=== PATIENT | female | born 1935 | race Caucasian/White ===

== ENCOUNTER 2016-12-16 10:02 | Emergency (ER) | payer MEDICARE ==
[~2016-12-16 10:02] MED LIST: ACCUNEB INH; ACET500CAP PO; ADVAIR INH; ADVAIR100 INH; ADVAIR250 INH; APRES25 PO; ASAB PO; BACTROINT TOP; GLUCOSE TABLETS PO; HALF81 PO; HIPREX1 GM PO; K250 PO; LIDODERM T; LIDODERM TOP; MACROBID PO; MAX25 PO; MCZ25 PO; MONODOX50 MG PO; OS500+D PO; P5 PO; PLAQ200B PO; PRAVACHOL40 MG PO; PREDNISONE2.5 MG PO; PRILO PO; PRILOSEC40 MG PO; PROAIR HFA INH; RECLAST IV; SKELAXIN8 PO; SMZ-TMP PO; SUCR PO; TOPXL50 PO; ULTRAM50 PO; XALAT OPH; ZYRTEC ALLGY10 MG PO
[2016-12-16 10:58] LABS: BASOPHILS 0.4 %; BASOPHILS ABSOLUTE 0.02 10/3/uL (0.0-0.16); EOSINOPHILS 1.6 %; EOSINOPHILS ABSOLUTE 0.09 10/3/uL (0.0-0.53); HEMOGLOBIN 12.9 g/dL (12.0-16.0); IMMATURE GRANULOCYTES 0.2 %; IMMATURE GRANULOCYTES ABSOLUTE 0.01 10/3/uL (0.0-0.11); LYMPHOCYTES 23.9 %; LYMPHOCYTES ABSOLUTE 1.36 10/3/uL (0.67-4.30); MEAN CORPUS HGB CONC 32.7 g/dL (32.0-36.0); MEAN CORPUSCULAR HEMOGLOB 29.7 pg (26.0-34.0); MEAN CORPUSCULAR VOLUME 90.6 fL (80-100); MEAN PLATELET VOLUME 10.5 fL (9.2-13.0); MONOCYTES 13.2 %; MONOCYTES ABSOLUTE 0.75 10/3/uL (0.21-1.20); NEUTROPHILS 60.7 %; NEUTROPHILS ABSOLUTE 3.45 10/3/uL (2.02-8.40); PLATELET COUNT 154 10/3/uL (150-400); RBC DISTRIBUTION WIDTH 14.6 % (12.0-16.0); RED CELL COUNT 4.35 10/6/uL (4.0-5.6); WHITE BLOOD CELLS 5.7 10/3/uL (4.5-10.5)
[2016-12-16 10:59] LABS: HEMATOCRIT 39.4 % (36.0-48.0); MANUAL DIFF NO %
[2016-12-16 11:04] LABS: PARTIAL THROMBO TIME 32.3 SEC (22.5-37.2); PROTIME (NOT ORD) 13.4 SEC (12.0-14.5)
[2016-12-16 11:15] LABS: A/G RATIO 0.9 (0.7-1.9); ALBUMIN 3.3 G/DL (3.5-5.0); ALKALINE PHOSPHATASE 49 U/L (45-117); CALCIUM, SERUM 8.9 MG/DL (8.5-10.4); CHLORIDE, SERUM 107 MMOL/L (96-112); CO2 (CARBON DIOXIDE) 26 MMOL/L (24-34); CREATININE 0.93 MG/DL (0.55-1.02); GFR AFRICAN AMERICAN 66 ML/MIN (>=60); GFR NON AFRICAN AMERICAN 57 ML/MIN (>=60); GLUCOSE, SERUM 90 MG/DL (60-99); POTASSIUM, SERUM 3.6 MMOL/L (3.5-5.3); SGOT(AST) 15 U/L (5-40); SGPT(ALT) 16 U/L (5-65); SODIUM, SERUM 142 MMOL/L (135-148); TOTAL BILIRUBIN 0.4 MG/DL (0-1.2); TOTAL PROTEIN 6.8 G/DL (6.0-8.5); TROPONIN I 0.04 NG/ML (<0.05)
[2016-12-16 11:17] LABS: BUN (BLOOD UREA NITROGEN) 13 MG/DL (6-23); GLOBULIN 3.5 G/DL (2.5-4.1)
[2016-12-16] MEDS ORDERED: OS500+D PO (13:58)
[2016-12-16] MEDS ORDERED: CIP2 PO (14:00)
[2017-01-17] MEDS ORDERED: PROLIA60 MG/1 ML SC (12:27)
[2017-01-17] MEDS ORDERED: ALIGN4 MG PO (12:30)
[2017-01-17] MEDS ORDERED: ALBUTEROL0.083 % INH (12:31)
[2017-01-17] MEDS ORDERED: PRINZIDE1 TA1 PO (12:35)
[2017-01-17] MEDS ORDERED: PROZ10 PO (12:36)
[2017-01-17] MEDS ORDERED: CIP2 PO (12:37)
[2017-01-17] MEDS ORDERED: ATV.5 PO (12:38)
[2017-05-15] MEDS ORDERED: BACTRIM1 TAB PO (09:47)
[2017-05-15] MEDS ORDERED: ALBUTEROL5 INH (09:50)
[2017-05-15] MEDS ORDERED: ELIQUIS 5 MG TAB5 MG PO (09:51)
[2017-05-15] MEDS ORDERED: C5 PO (09:53)
== END 2016-12-16 14:36 | disposition home or self-care (01) ==
LOC: ER 10:02
PROVIDERS: Emergency Medicine
DX: R07.9 Chest pain, unspecified (principal); R55 Syncope and collapse; R00.2 Palpitations; J44.9 Chronic obstructive pulmonary disease, unspecified; Z86.73 Personal history of transient ischemic attack (TIA), and cerebral infarction without residual deficits; Z79.899 Other long term (current) drug therapy; Z79.52 Long term (current) use of systemic steroids
CPT/HCPCS: 71010; 80053; 83735; 84484; 85025; 85610; 85730; 99285

== ENCOUNTER 2016-12-23 13:55 | Emergency (ER) | payer MEDICARE ==
[~2016-12-23 13:55] MED LIST changes: +CIP2 PO
[2016-12-23 14:06] LABS: BASOPHILS 0.1 %; BASOPHILS ABSOLUTE 0.01 10/3/uL (0.0-0.16); EOSINOPHILS 1.3 %; EOSINOPHILS ABSOLUTE 0.09 10/3/uL (0.0-0.53); HEMATOCRIT 36.7 % (36.0-48.0); HEMOGLOBIN 12.2 g/dL (12.0-16.0); IMMATURE GRANULOCYTES 0.1 %; IMMATURE GRANULOCYTES ABSOLUTE 0.01 10/3/uL (0.0-0.11); LYMPHOCYTES ABSOLUTE 1.37 10/3/uL (0.67-4.30); MEAN CORPUS HGB CONC 33.2 g/dL (32.0-36.0); MEAN CORPUSCULAR HEMOGLOB 29.3 pg (26.0-34.0); MEAN PLATELET VOLUME 9.3 fL (9.2-13.0); MONOCYTES 9.8 %; MONOCYTES ABSOLUTE 0.67 10/3/uL (0.21-1.20); NEUTROPHILS 68.7 %; NEUTROPHILS ABSOLUTE 4.71 10/3/uL (2.02-8.40); PLATELET COUNT 159 10/3/uL (150-400); RBC DISTRIBUTION WIDTH 14.5 % (12.0-16.0); RED CELL COUNT 4.17 10/6/uL (4.0-5.6); WHITE BLOOD CELLS 6.9 10/3/uL (4.5-10.5)
[2016-12-23 14:07] LABS: MANUAL DIFF NO %
[2016-12-23 14:13] LABS: PROTIME (NOT ORD) 13.3 SEC (12.0-14.5)
[2016-12-23 14:25] LABS: A/G RATIO 1.1 (0.7-1.9); ALBUMIN 3.4 G/DL (3.5-5.0); ALKALINE PHOSPHATASE 52 U/L (45-117); BUN (BLOOD UREA NITROGEN) 11 MG/DL (6-23); CALCIUM, SERUM 8.6 MG/DL (8.5-10.4); CHLORIDE, SERUM 104 MMOL/L (96-112); CO2 (CARBON DIOXIDE) 23 MMOL/L (24-34); CREATININE 0.93 MG/DL (0.55-1.02); GFR AFRICAN AMERICAN 66 ML/MIN (>=60); GFR NON AFRICAN AMERICAN 57 ML/MIN (>=60); GLUCOSE, SERUM 86 MG/DL (60-99); SGOT(AST) 22 U/L (5-40); SGPT(ALT) 23 U/L (5-65); SODIUM, SERUM 138 MMOL/L (135-148); TOTAL BILIRUBIN 0.5 MG/DL (0-1.2); TOTAL PROTEIN 6.4 G/DL (6.0-8.5); TROPONIN I <0.02 NG/ML (<0.05)
[2017-01-17] MEDS ORDERED: PROLIA60 MG/1 ML SC (12:27)
[2017-01-17] MEDS ORDERED: ALIGN4 MG PO (12:30)
[2017-01-17] MEDS ORDERED: ALBUTEROL0.083 % INH (12:31)
[2017-01-17] MEDS ORDERED: PRINZIDE1 TA1 PO (12:35)
[2017-01-17] MEDS ORDERED: PROZ10 PO (12:36)
[2017-01-17] MEDS ORDERED: CIP2 PO (12:37)
[2017-01-17] MEDS ORDERED: ATV.5 PO (12:38)
[2017-05-15] MEDS ORDERED: BACTRIM1 TAB PO (09:47)
[2017-05-15] MEDS ORDERED: ALBUTEROL5 INH (09:50)
[2017-05-15] MEDS ORDERED: ELIQUIS 5 MG TAB5 MG PO (09:51)
[2017-05-15] MEDS ORDERED: C5 PO (09:53)
== END 2016-12-23 17:14 | disposition home or self-care (01) ==
LOC: ER 13:55
PROVIDERS: Emergency Medicine
DX: R07.89 Other chest pain (principal); F41.9 Anxiety disorder, unspecified; J44.9 Chronic obstructive pulmonary disease, unspecified; I10 Essential (primary) hypertension; K21.9 Gastro-esophageal reflux disease without esophagitis; Z85.828 Personal history of other malignant neoplasm of skin; Z79.52 Long term (current) use of systemic steroids; Z79.899 Other long term (current) drug therapy
CPT/HCPCS: 71275; 80053; 83880; 84484; 85025; 85610; 93005; 96374; 99285

== ENCOUNTER 2017-01-10 19:16 | Emergency (ER) | payer MEDICARE ==
[2017-01-10 20:20] LABS: BASOPHILS 0.4 %; BASOPHILS ABSOLUTE 0.02 10/3/uL (0.0-0.16); EOSINOPHILS 2.3 %; EOSINOPHILS ABSOLUTE 0.11 10/3/uL (0.0-0.53); ER CBC TAT 0 Hrs 05 Mins; HEMATOCRIT 37.6 % (36.0-48.0); HEMOGLOBIN 12.1 g/dL (12.0-16.0); IMMATURE GRANULOCYTES 0.2 %; IMMATURE GRANULOCYTES ABSOLUTE 0.01 10/3/uL (0.0-0.11); LYMPHOCYTES 24.9 %; LYMPHOCYTES ABSOLUTE 1.17 10/3/uL (0.67-4.30); MEAN CORPUS HGB CONC 32.2 g/dL (32.0-36.0); MEAN CORPUSCULAR HEMOGLOB 28.4 pg (26.0-34.0); MEAN CORPUSCULAR VOLUME 88.3 fL (80-100); MEAN PLATELET VOLUME 10.8 fL (9.2-13.0); MONOCYTES 14.3 %; MONOCYTES ABSOLUTE 0.67 10/3/uL (0.21-1.20); NEUTROPHILS 57.9 %; NEUTROPHILS ABSOLUTE 2.71 10/3/uL (2.02-8.40); PLATELET COUNT 162 10/3/uL (150-400); RED CELL COUNT 4.26 10/6/uL (4.0-5.6); WHITE BLOOD CELLS 4.7 10/3/uL (4.5-10.5)
[2017-01-10 20:21] LABS: MANUAL DIFF NO %
[2017-01-10 20:23] LABS: ASCORBIC ACID (UR NOT ORDER) NEG (NEG); BILIRUBIN, URINE NEGATIVE (NEG); ER URINALYSIS TAT 0 Hrs 13 Mins; KETONE, URINE NEGATIVE (NEG); LEUKOCYTE ESTERASE(NOT OR NEG (NEG); NITRITE (URINE) NEG (NEG); WBC (NOT ORDERED) (RFLEX) 1 (0-5)
[2017-01-10 20:27] LABS: INTERNATIONAL NORMAL RATI 1.1 UNITS (-); PARTIAL THROMBO TIME 37.6 SEC (22.5-37.2); PROTIME (NOT ORD) 13.7 SEC (12.0-14.5)
[2017-01-10 20:50] LABS: BUN (BLOOD UREA NITROGEN) 19 MG/DL (6-23); CALCIUM, SERUM 8.8 MG/DL (8.5-10.4); CHEST PAIN PROFILE TAT 0 Hrs 35 Mins; CHLORIDE, SERUM 104 MMOL/L (96-112); CO2 (CARBON DIOXIDE) 29 MMOL/L (24-34); CREATININE 0.95 MG/DL (0.55-1.02); GFR AFRICAN AMERICAN 65 ML/MIN (>=60); GFR NON AFRICAN AMERICAN 56 ML/MIN (>=60); GLUCOSE, SERUM 86 MG/DL (60-99); SODIUM, SERUM 138 MMOL/L (135-148); TROPONIN I <0.02 NG/ML (<0.05)
[2017-01-17] MEDS ORDERED: PROLIA60 MG/1 ML SC (12:27)
[2017-01-17] MEDS ORDERED: ALIGN4 MG PO (12:30)
[2017-01-17] MEDS ORDERED: ALBUTEROL0.083 % INH (12:31)
[2017-01-17] MEDS ORDERED: PRINZIDE1 TA1 PO (12:35)
[2017-01-17] MEDS ORDERED: PROZ10 PO (12:36)
[2017-01-17] MEDS ORDERED: CIP2 PO (12:37)
[2017-01-17] MEDS ORDERED: ATV.5 PO (12:38)
[2017-05-15] MEDS ORDERED: BACTRIM1 TAB PO (09:47)
[2017-05-15] MEDS ORDERED: ALBUTEROL5 INH (09:50)
[2017-05-15] MEDS ORDERED: ELIQUIS 5 MG TAB5 MG PO (09:51)
[2017-05-15] MEDS ORDERED: C5 PO (09:53)
== END 2017-01-10 23:05 | disposition home or self-care (01) ==
LOC: ER 19:16
PROVIDERS: Physician Assistant
DX: R51 Headache (principal); J44.9 Chronic obstructive pulmonary disease, unspecified; I10 Essential (primary) hypertension; K21.9 Gastro-esophageal reflux disease without esophagitis; Z85.828 Personal history of other malignant neoplasm of skin; Z95.0 Presence of cardiac pacemaker; Z79.82 Long term (current) use of aspirin; Z79.899 Other long term (current) drug therapy
CPT/HCPCS: 70450; 71010; 80048; 81001; 83735; 84484; 85025; 85610; 85730; 87493; 87493-59; 93005; 96374; 96375; 99285; A9270-GY; J1200; J1885; J2405; J2550

== ENCOUNTER 2017-01-17 12:41 | Inpatient (IN) | payer MEDICARE ==
--- NOTE | ~2017-01-17 | HP ---
History And Physical [place] [address] [facility] [place]. [address] NAME: CITLALI EARL : 33 STATUS : ADM IN [facility]#: [id number] AGE: 81 ADM/REG DATE : 01/17/17 MR#: [id number] REPORT SERV DATE: 01/17/17 DICTATED BY: MABLE WAY DATE: 01/17/17 REPORT STATUS : Draft TRANSCRIBED BY: MODConcha DATE: 01/17/17 DATE OF ADMISSION: 01/17/2017 CHIEF COMPLAINT: Weakness and having diarrhea for 10 days. HISTORY OF PRESENT ILLNESS: This is an 81-year-old female patient, who came to the hospital with generalized weakness and nausea and vomiting and inability to eat and drink for the last 10 days. She had most recently had a pacemaker insertion done about a month ago for the secondary AV block with Dr. Karimi here in the hospital and she was discharged to home and having her regular daily life. However she started having nausea and vomiting, also was found to have a urinary tract infection on 01/13/2017, when she went to see Dr. Duff as a regular checkup. At that time, she already started diarrhea; however, she was also found to have a very dirty looking urine with evidence of infection that she was given the ciprofloxacin. She started to take the medications and then she took only 3 day doses. However she continued to have dysuria and suprapubic tenderness and discomfort. Also her diarrhea continued to getting even worse that she is losing appetite and not able to eat and drink that much. She ended up having emergency visit on Thursday but at that time nothing was found to have her to be admitted to hospital and she went home. However she continued to worse, that is why she revisited the emergency room today. After the emergency room evaluation, she was found to have a sodium 126, chloride 95, with slightly worsening renal function with creatinine 1.1 and BUN 13, and the patient was advised to be admitted to hospital under hospitalist service. Currently she is feeling very sick and weak and she fell at home twice. Does not have any fever. No change in the vision. She complains of a little bit of headache here and there and then she feels nauseated and had vomiting and diarrhea. She denies any dark stool. She said it is very watery and starting from yellow to brown but she said that she never had any dark stool. She never had any history of C. diff colitis as well. She goes to the bathroom about 5 to 6 times a day regardless of the time of the eating and again she was on ciprofloxacin for the last three days without any significant improvement in her urinary tract infection symptoms. Looking back at her records, she had a quinolone resistant E. coli back in December. Denies any chest pain. No seizures. Not short of breath. No cough. There is a slight abdominal pain in the suprapubic area and also kind of diffuse pattern. REVIEW OF SYSTEMS: All systems reviewed and negative as mentioned above. PAST MEDICAL HISTORY: 1. Recent AV dissociation for pacemaker insertion. 2. COPD with remote tobacco abuse. The patient is followed by Dr. Zarco. 3. History of mild aortic calcification. 4. Hyperlipidemia. 5. History of TIA. History And Physical [address] [address] NAME: CITLALI EARL : 33 STATUS : ADM IN [facility]#: [id number] AGE: 81 ADM/REG DATE : 01/17/17 MR#: [id number] REPORT SERV DATE: 01/17/17 DICTATED BY: MABLE WAY DATE: 01/17/17 REPORT STATUS : Draft TRANSCRIBED BY: BEBE DATE: 01/17/17 HOME MEDICATIONS: 1. Albuterol as needed. 2. Advair twice a day. 3. Eliquis 5 mg twice a day. 4. Cipro 250 mg for seven days was given on 01/13/2017. 5. Prozac 10 mg once a day was given on the last visit with Dr. Duff but the patient has not started. 6. Prilosec 40 mg twice a day. 7. Pravastatin 40 mg once at nighttime. 8. Prednisone 2.5 mg once a day as a long-term therapy. 9. Carafate 1 g four times a day. 10.Ultram 50 mg as needed. FAMILY HISTORY: Noncontributory for this patient and their illness. PAST SURGICAL HISTORY: 1. The patient had a cholecystectomy and partial hysterectomy. 2. Elbow surgery. 3. Joint surgery for rheumatoid arthritis. 4. Squamous cell removal. 5. Laparoscopic bowel obstruction surgery in the past. ALLERGIES: PHENERGAN. PHYSICAL EXAMINATION: VITAL SIGNS: Blood pressure 120/58, pulse is 77, her temperature was 98.2, respiratory rate 17, and blood pressure was 120/58. GENERAL: Acutely sick but not in acute cardiovascular distress. HEENT: Pupils are equal, round, and reactive to light. EOMI intact. Conjunctivae not anemic; however, she has very dry oral mucosa. NECK: There is no jugular venous distention. CHEST: Clear to auscultation bilaterally. There is no wheezing or rales. CARDIOVASCULAR: There is no murmur, rub, or gallop. Has a regular rhythm and rate. ABDOMEN: Diffuse pattern of tenderness on the upper area but there is no rebound tenderness and there is a suprapubic tenderness. EXTREMITIES: There is no pitting edema. SKIN: Dry looking. LABORATORY DATA: Showed sodium of 126, potassium 4.0, chloride 95, BUN 13, and creatinine 1.10. WBC 4.2, hemoglobin 13.7, hematocrit 40.8, and platelets 154. LFTs are normal. UA showed a greater than 182 wbc. STUDIES: 1. X-ray was obtained on 01/10/2017, which did show COPD pattern without significant acute abnormalities. 2. CT of the abdomen and pelvis performed in this admission did not show any acute History And Physical [address] [address] NAME: CITLALI EARL : 33 STATUS : ADM IN [facility]#: [id number] AGE: 81 ADM/REG DATE : 01/17/17 MR#: [id number] REPORT SERV DATE: 01/17/17 DICTATED BY: MABLE WAY DATE: 01/17/17 REPORT STATUS : Draft TRANSCRIBED BY: MODL DATE: 01/17/17 finding. 3. She had a nuclear test on 12/19/2016, had no ischemia. 4. Also she had echocardiogram on 12/10/2016, which showed normal right and left ventricular function and size. ASSESSMENT AND PLAN: 1. UTI. The patient's previous urine culture showed quinolone resistant E. coli. I called the lab to identify the gram-negative bacilli, it was identified on 01/13/2017, during Dr. Duff's office visit and on the left side, it was very hard to identify. We are going to obtain another urine culture and empirically put her on cephalosporin IV. 2. Hyponatremia, more likely hypovolemic clinically, also her lisinopril and hydrochlorothiazide was a new medication compared to last admission a month ago. The patient will need a gentle hydration with normal saline. We will watch the serial lab work. 3. Recent past pacemaker insertion and she was given the Ancef. 4. COPD stable. 5. Acute kidney injury. We will put her on the gentle hydration. 6. Diarrhea. We will also check the stool for C. diff. Current admission is discussed with the patient and son who is in the room and they voiced understanding. Also Dr. Perez was discussed with this patient's care in the hospital. EKL/MODL Mable Way M.D. / [id number] CC: Porfirio Prajapati M.D.
--- NOTE | ~2017-01-17 | CN ---
Consultation Report [facility] [address] [place]. [address] NAME: CITLALI EARL : 33 STATUS : ADM IN [facility]#: [id number] AGE: 81 ADM/REG DATE : 01/17/17 MR#: [id number] REPORT SERV DATE: 01/23/17 DICTATED BY: AIDA ASHLYE DATE: 01/22/17 REPORT STATUS : Draft TRANSCRIBED BY: BEBE DATE: 01/22/17 CARDIOLOGY CONSULT DATE OF CONSULTATION: 01/22/2017 REFERRING REASON: Paroxysmal atrial fibrillation. HISTORY OF PRESENT ILLNESS: This is a pleasant, 81-year-old white female, well known to Dr. Juvenal Lozano from [facility], who has been admitted for general weakness and diarrhea. She has been recently seen by Dr. Lozano in his office on 01/09/2017, and she was found to have paroxysmal atrial fibrillation and was started on Eliquis. She denies any palpitations. She is status post permanent pacemaker placement for advanced heart block by Dr. Karimi one month ago. She has now documented episode of atrial fibrillation. She denies any palpitations, syncope, or chest pain or significant shortness of breath. She presented with diarrhea and having general weakness. She was found to be in atrial fibrillation, which has been rate controlled in the . The patient recently had echocardiogram, which was satisfactory with the EF 60%. She is now heading to home for home health or to rehab. She is ambulating without any difficulties. REVIEW OF SYSTEMS: The rest of review of systems is negative. PAST MEDICAL HISTORY: 1. Paroxysmal atrial fibrillation. 2. Anticoagulation with Eliquis started in 01/2017. 3. Status post permanent pacemaker placement one month ago for AV block. This is MRI compatible device. 4. History of atypical chest pain. 5. Remote history of negative nuclear cardiac stress test for ischemia. 6. Preserved systolic function with EF 60% by echocardiogram in 12/2016. 7. COPD followed by Dr. Zarco. There is remote history of TIA. ALLERGIES: PHENERGAN. HOME MEDICATIONS: Albuterol, Eliquis 5 mg twice a day, Cipro 250 mg twice a day, Prolia injection, Prozac 10 mg once a day, Advair Diskus daily, hydralazine 25 mg twice a day, and lisinopril with hydrochlorothiazide 25/12.5 mg once a day, lorazepam p.r.n., Prilosec 40 mg once a day, Pravachol 40 mg once a day, prednisone 2.5 mg once a day for rheumatoid arthritis, and tramadol 50 mg as needed. SOCIAL HISTORY: The patient ambulated without any difficulty. She lives independently. Denies smoking, drinking alcohol, or using street drugs. The patient is a . FAMILY HISTORY: Negative for sudden cardiac or premature coronary artery disease in the family. Consultation Report [address] [place]. [address] NAME: CITLALI EARL : 34 STATUS : ADM IN PAT#: [id number] AGE: 81 ADM/REG DATE : 01/17/17 MR#: [id number] REPORT SERV DATE: 01/23/17 DICTATED BY: AIDA ASHLEY DATE: 01/22/17 REPORT STATUS : Draft TRANSCRIBED BY: BEBE DATE: 01/22/17 PHYSICAL EXAMINATION: GENERAL: No acute distress. VITAL SIGNS: Blood pressure 133/60, heart rate 74, irregular regular. HEENT: Pupils reactive to light and accommodation. Moist mucosa membrane. NECK: No JVD. Normal carotid upstroke. No carotid bruits. LUNGS: Decreased breath sounds, but no crackles. COR: Normal S1, S2. No S3 or S4. No significant rub or murmurs. ABDOMEN: Obese. Distended. Nontender. EXT: No edema. Pedal pulses strong and equal bilaterally. SKIN: Warm with normal turgor. MUSCULOSKELETAL: No kyphosis. NEURO/PSY: Alert and oriented. Nonfocal. DATA: CBC and electrolytes were within normal limits. Blood cultures over the last four days negative. Troponin x1 is negative. Electrocardiogram on 01/21/2017, revealed atrial fibrillation at 89 beats per minute with one PVC. On monitor, she is in sinus rhythm. ASSESSMENT/PLAN: 1. Recent diarrhea and history of urinary tract infection, resolved. 2. General weakness of multifactorial etiology, improved. 3. Paroxysmal atrial fibrillation, asymptomatic. 4. Anticoagulation with Eliquis started in 01/2017. Under these treatment, the patient is hemodynamically stable. She denies any symptoms from paroxysmal atrial fibrillation. I would continue current dose of Eliquis and start her on metoprolol 12.5 mg twice a day. No further cardiac workup needed. Her echocardiogram is normal. She will follow up with Dr. Lozano. Thank you for the consult. LUPE/BEBE Aida Ashley M.D. / [id number] CC: Porfirio Benitez M.D.
--- NOTE | ~2017-01-17 | DS ---
Discharge Summary [place] [id number] [facility] [place]. [address] NAME: CITLALI EARL : 33 STATUS : ADM IN [facility]#: [id number] AGE: 81 ADM/REG DATE : 01/17/17 MR#: [id number] REPORT SERV DATE: 01/23/17 DICTATED BY: BILLY APODACA DATE: 01/23/17 REPORT STATUS : Draft TRANSCRIBED BY: MODL DATE: 01/23/17 ADMISSION DATE: 01/17/2017 DISCHARGE DATE: 01/23/2017 FINAL HOSPITAL DIAGNOSES: 1. Urinary tract infection with nausea, vomiting, and volume depletion. 2. Atrial fibrillation, chronic anticoagulation. 3. Chronic obstructive pulmonary disease. 4. Hyperlipidemia. 5. History of transient ischemic attack. CONSULTATIONS: Cardiology, Ember Meyers M.D. PROCEDURES: CT abdomen and pelvis done on the showing no evidence of acute intraabdominal or pelvic pathology, on noncontrast CT; [id number] aortoiliac atherosclerosis; mild chronic compression deformity of the T11 vertebrae. CURRENT PHYSICAL FINDINGS AND HISTORY OF PRESENT ILLNESS: Please see dictated initial dictated H and P by Dr. Way. In brief, the patient is an 81-year-old female who presented with above complaints of diarrhea, weakness, nausea, and vomiting. Vital signs at the time of admission: Initial BP was 120/58. Temp was 98.2, heart rates have been in the 80 and 90s. LAB WORK: Initial procalcitonin was 0.05. Initial BMP showed a sodium of 126. This corrected to 134 the following day and is maintained in the 140s since. Initial creatinine was 1.10, but has since normalized under 1. Lactate was 1.9. White count was 4.2. No significant anemia during this hospital stay. Initial urinalysis was cloudy with large leukocyte esterase, greater than 182 WBCs, and many bacteria. Blood cultures done on the , negative at four days. Stool studies done on the were negative for Giardia and negative for crypto, and negative for C diff. HOSPITAL COURSE: The patient was admitted for UTI, weakness, dizziness, and diarrhea. IV fluids were started. pain and nausea medications were given. Rocephin was started for her UTI. She was given stress dose steroids briefly with a rapid titration down. She was given some Pyridium, but this produced side affects, so she discontinued it. PT evaluated for treatment. She is able to tolerate back down to her p.o. prednisone dose. I took over the care on the . She was doing fine at that time. Her urine sensitivities came back, and she was transitioned to [facility] for a more focused therapy. On the evening of the , She had had a run of atrial fibrillation. She was given IV beta-paula, which lowered her blood pressure. She requested a consultation with Cardiology. They recommended a p.o. beta-paula and to follow up with her PCP. The patient had no other problems and was discharged in stable condition on the . DISPOSITION: Patient is discharged home. She will follow up with her PCP in 10 to 14 days. She will follow up with Dr. Lozano in a Discharge Summary [address] [address] NAME: CITLALI EARL : 34 STATUS : ADM IN PAT#: [id number] AGE: 81 ADM/REG DATE : 01/17/17 MR#: [id number] REPORT SERV DATE: 01/23/17 DICTATED BY: BILLY APODACA DATE: 01/23/17 REPORT STATUS : Draft TRANSCRIBED BY: BEBE DATE: 01/23/17 month. She will return for any recurrent symptoms. Home Health and home PT will be requested. Prescription for Macrobid 100 b.i.d. for an additional three days. She will continue Eliquis 5 b.i.d., Os-Noah 500 daily, Xalatan eye drops, a new prescription for Lopressor 12.5 b.i.d., Prilosec 40 twice a day, Pravachol 40. Her hydralazine dose will be decreased from 25 to 12.5 daily; prednisone 2.5; albuterol inhaler; Advair Diskus 250/50 b.i.d.; albuterol nebulizer p.r.n.; Lidoderm patch; Carafate 1 g 4 times daily; Bactroban ointment; glucose tablets; Ultram 50; Prolia 60 q. Thursday; Align probiotic; Prozac 10, and Ativan 0.5 half tablet b.i.d. p.r.n. She has not been on her Prinzide 26/08.5 here with her titration down, hydralazine in addition to the beta paula we will hold for now. She will return for any recurrent symptoms. TLF/MODL Billy Apodaca M.D. / [id number] CC: Porfirio Benitez M.D. Alan Shikoh, M.D. Kymber Habenicht, M.D. Mark Thel, M.D.
[2017-01-17 11:21] LABS: BASOPHILS 0.7 %; BASOPHILS ABSOLUTE 0.03 10/3/uL (0.0-0.16); EOSINOPHILS 1.9 %; EOSINOPHILS ABSOLUTE 0.08 10/3/uL (0.0-0.53); ER CBC TAT 0 Hrs 05 Mins; HEMATOCRIT 40.8 % (36.0-48.0); HEMOGLOBIN 13.7 g/dL (12.0-16.0); IMMATURE GRANULOCYTES 0.2 %; IMMATURE GRANULOCYTES ABSOLUTE 0.01 10/3/uL (0.0-0.11); LYMPHOCYTES 30.4 %; LYMPHOCYTES ABSOLUTE 1.27 10/3/uL (0.67-4.30); MANUAL DIFF NO %; MEAN CORPUS HGB CONC 33.6 g/dL (32.0-36.0); MEAN CORPUSCULAR HEMOGLOB 28.6 pg (26.0-34.0); MEAN CORPUSCULAR VOLUME 85.2 fL (80-100); MEAN PLATELET VOLUME 10.5 fL (9.2-13.0); MONOCYTES 18.2 %; MONOCYTES ABSOLUTE 0.76 10/3/uL (0.21-1.20); NEUTROPHILS 48.6 %; NEUTROPHILS ABSOLUTE 2.03 10/3/uL (2.02-8.40); PLATELET COUNT 154 10/3/uL (150-400); RBC DISTRIBUTION WIDTH 14.2 % (12.0-16.0); RED CELL COUNT 4.79 10/6/uL (4.0-5.6); WHITE BLOOD CELLS 4.2 10/3/uL (4.5-10.5)
[2017-01-17 11:30] LABS: ASCORBIC ACID (UR NOT ORDER) NEG (NEG); BILIRUBIN, URINE NEGATIVE (NEG); ER URINALYSIS TAT 0 Hrs 14 Mins; KETONE, URINE NEGATIVE (NEG); LEUKOCYTE ESTERASE(NOT OR LARGE (NEG); NITRITE (URINE) NEG (NEG); WBC (NOT ORDERED) (RFLEX) > 182 (0-5)
[2017-01-17 11:37] LABS: A/G RATIO 1.1 (0.7-1.9); ALBUMIN 3.8 G/DL (3.5-5.0); ALKALINE PHOSPHATASE 53 U/L (45-117); BUN (BLOOD UREA NITROGEN) 13 MG/DL (6-23); CHLORIDE, SERUM 95 MMOL/L (96-112); CO2 (CARBON DIOXIDE) 28 MMOL/L (24-34); GFR AFRICAN AMERICAN 54 ML/MIN (>=60); GFR NON AFRICAN AMERICAN 47 ML/MIN (>=60); GLOBULIN 3.4 G/DL (2.5-4.1); GLUCOSE, SERUM 91 MG/DL (60-99); SGOT(AST) 37 U/L (5-40); SGPT(ALT) 39 U/L (5-65); TOTAL BILIRUBIN 0.7 MG/DL (0-1.2); TOTAL PROTEIN 7.2 G/DL (6.0-8.5)
[2017-01-17 11:38] LABS: SODIUM, SERUM 126 MMOL/L (135-148)
[2017-01-17 11:39] LABS: LACTATE 1.9 MMOL/L (0.3-2.4)
[2017-01-17 12:07] LABS: PROCALCITONIN <0.05 ng/mL (<0.5)
[~2017-01-17 12:41] MED LIST changes: +ALBUTEROL0.083 % INH; +ALIGN4 MG PO; +ATV.5 PO; +PRINZIDE1 TA1 PO; +PROLIA60 MG/1 ML SC; +PROZ10 PO
[2017-01-18 05:03] LABS: BASOPHILS 0 %; EOSINOPHILS 0.3 %; EOSINOPHILS ABSOLUTE 0.01 10/3/uL (0.0-0.53); HEMOGLOBIN 12.2 g/dL (12.0-16.0); IMMATURE GRANULOCYTES 0.3 %; IMMATURE GRANULOCYTES ABSOLUTE 0.01 10/3/uL (0.0-0.11); LYMPHOCYTES 19.2 %; MEAN CORPUS HGB CONC 33.5 g/dL (32.0-36.0); MEAN CORPUSCULAR HEMOGLOB 28.6 pg (26.0-34.0); MEAN CORPUSCULAR VOLUME 85.4 fL (80-100); MONOCYTES 3.8 %; MONOCYTES ABSOLUTE 0.12 10/3/uL (0.21-1.20); NEUTROPHILS 76.4 %; NEUTROPHILS ABSOLUTE 2.39 10/3/uL (2.02-8.40); PLATELET COUNT 136 10/3/uL (150-400); RBC DISTRIBUTION WIDTH 14.3 % (12.0-16.0); RED CELL COUNT 4.26 10/6/uL (4.0-5.6); WHITE BLOOD CELLS 3.1 10/3/uL (4.5-10.5)
[2017-01-18 05:05] LABS: HEMATOCRIT 36.4 % (36.0-48.0); MANUAL DIFF NO %
[2017-01-18 05:11] LABS: BUN (BLOOD UREA NITROGEN) 13 MG/DL (6-23); CALCIUM, SERUM 8.5 MG/DL (8.5-10.4); CREATININE 1.06 MG/DL (0.55-1.02); GFR AFRICAN AMERICAN 57 ML/MIN (>=60); GFR NON AFRICAN AMERICAN 49 ML/MIN (>=60)
[2017-01-18 05:13] LABS: CHLORIDE, SERUM 106 MMOL/L (96-112); CO2 (CARBON DIOXIDE) 23 MMOL/L (24-34); GLUCOSE, SERUM 161 MG/DL (60-99); SODIUM, SERUM 134 MMOL/L (135-148)
[2017-01-19 06:42] LABS: BASOPHILS 0.4 %; BASOPHILS ABSOLUTE 0.02 10/3/uL (0.0-0.16); EOSINOPHILS 0.4 %; EOSINOPHILS ABSOLUTE 0.02 10/3/uL (0.0-0.53); HEMATOCRIT 33.8 % (36.0-48.0); HEMOGLOBIN 11.2 g/dL (12.0-16.0); IMMATURE GRANULOCYTES 0.2 %; IMMATURE GRANULOCYTES ABSOLUTE 0.01 10/3/uL (0.0-0.11); LYMPHOCYTES 23.5 %; LYMPHOCYTES ABSOLUTE 1.26 10/3/uL (0.67-4.30); MEAN CORPUS HGB CONC 33.1 g/dL (32.0-36.0); MEAN CORPUSCULAR HEMOGLOB 28.7 pg (26.0-34.0); MEAN CORPUSCULAR VOLUME 86.7 fL (80-100); MEAN PLATELET VOLUME 10.8 fL (9.2-13.0); MONOCYTES 10.6 %; MONOCYTES ABSOLUTE 0.57 10/3/uL (0.21-1.20); NEUTROPHILS 64.9 %; NEUTROPHILS ABSOLUTE 3.49 10/3/uL (2.02-8.40); PLATELET COUNT 120 10/3/uL (150-400); RBC DISTRIBUTION WIDTH 14.6 % (12.0-16.0)
[2017-01-19 06:46] LABS: MANUAL DIFF NO %; WHITE BLOOD CELLS 5.4 10/3/uL (4.5-10.5)
[2017-01-19 06:53] LABS: BUN (BLOOD UREA NITROGEN) 18 MG/DL (6-23); CALCIUM, SERUM 8.6 MG/DL (8.5-10.4); CHLORIDE, SERUM 108 MMOL/L (96-112); CO2 (CARBON DIOXIDE) 26 MMOL/L (24-34); CREATININE 0.91 MG/DL (0.55-1.02); GFR AFRICAN AMERICAN 68 ML/MIN (>=60); GFR NON AFRICAN AMERICAN 59 ML/MIN (>=60); GLUCOSE, SERUM 105 MG/DL (60-99); POTASSIUM, SERUM 4.6 MMOL/L (3.5-5.3); SODIUM, SERUM 140 MMOL/L (135-148)
[2017-01-20 06:23] LABS: BASOPHILS 0.2 %; BASOPHILS ABSOLUTE 0.01 10/3/uL (0.0-0.16); EOSINOPHILS 0.4 %; EOSINOPHILS ABSOLUTE 0.02 10/3/uL (0.0-0.53); HEMATOCRIT 35.9 % (36.0-48.0); HEMOGLOBIN 11.6 g/dL (12.0-16.0); IMMATURE GRANULOCYTES 0.4 %; IMMATURE GRANULOCYTES ABSOLUTE 0.02 10/3/uL (0.0-0.11); LYMPHOCYTES 30.1 %; LYMPHOCYTES ABSOLUTE 1.54 10/3/uL (0.67-4.30); MEAN CORPUS HGB CONC 32.3 g/dL (32.0-36.0); MEAN CORPUSCULAR HEMOGLOB 28.1 pg (26.0-34.0); MEAN CORPUSCULAR VOLUME 86.9 fL (80-100); MEAN PLATELET VOLUME 11.3 fL (9.2-13.0); MONOCYTES 13.3 %; MONOCYTES ABSOLUTE 0.68 10/3/uL (0.21-1.20); NEUTROPHILS 55.6 %; NEUTROPHILS ABSOLUTE 2.85 10/3/uL (2.02-8.40); PLATELET COUNT 140 10/3/uL (150-400); RBC DISTRIBUTION WIDTH 14.7 % (12.0-16.0); RED CELL COUNT 4.13 10/6/uL (4.0-5.6); WHITE BLOOD CELLS 5.1 10/3/uL (4.5-10.5)
[2017-01-20 06:24] LABS: MANUAL DIFF NO %
[2017-01-20 06:43] LABS: CALCIUM, SERUM 9.3 MG/DL (8.5-10.4); CHLORIDE, SERUM 108 MMOL/L (96-112); CO2 (CARBON DIOXIDE) 28 MMOL/L (24-34); CREATININE 0.88 MG/DL (0.55-1.02); GFR AFRICAN AMERICAN 71 ML/MIN (>=60); GFR NON AFRICAN AMERICAN 61 ML/MIN (>=60); GLUCOSE, SERUM 92 MG/DL (60-99); POTASSIUM, SERUM 4.8 MMOL/L (3.5-5.3); SODIUM, SERUM 142 MMOL/L (135-148)
[2017-01-20 06:44] LABS: BUN (BLOOD UREA NITROGEN) 22 MG/DL (6-23)
[2017-01-22 00:22] LABS: CPK 33 U/L (0-200); TROPONIN I <0.02 NG/ML (<0.05)
[2017-01-22 00:24] LABS: CK-MB 1.3 NG/ML
[2017-01-22 06:57] LABS: BASOPHILS 0.4 %; BASOPHILS ABSOLUTE 0.02 10/3/uL (0.0-0.16); EOSINOPHILS 2.4 %; EOSINOPHILS ABSOLUTE 0.13 10/3/uL (0.0-0.53); HEMATOCRIT 36.5 % (36.0-48.0); HEMOGLOBIN 12.2 g/dL (12.0-16.0); IMMATURE GRANULOCYTES 0.6 %; IMMATURE GRANULOCYTES ABSOLUTE 0.03 10/3/uL (0.0-0.11); LYMPHOCYTES 29.5 %; LYMPHOCYTES ABSOLUTE 1.58 10/3/uL (0.67-4.30); MEAN CORPUS HGB CONC 33.4 g/dL (32.0-36.0); MEAN CORPUSCULAR HEMOGLOB 28.6 pg (26.0-34.0); MEAN CORPUSCULAR VOLUME 85.5 fL (80-100); MEAN PLATELET VOLUME 10.5 fL (9.2-13.0); MONOCYTES ABSOLUTE 0.64 10/3/uL (0.21-1.20); NEUTROPHILS 55.1 %; NEUTROPHILS ABSOLUTE 2.95 10/3/uL (2.02-8.40); PLATELET COUNT 162 10/3/uL (150-400); RBC DISTRIBUTION WIDTH 14.8 % (12.0-16.0); RED CELL COUNT 4.27 10/6/uL (4.0-5.6); WHITE BLOOD CELLS 5.4 10/3/uL (4.5-10.5)
[2017-01-22 07:04] LABS: MANUAL DIFF NO %
[2017-01-22 07:18] LABS: BUN (BLOOD UREA NITROGEN) 25 MG/DL (6-23); CALCIUM, SERUM 8.8 MG/DL (8.5-10.4); CHLORIDE, SERUM 106 MMOL/L (96-112); CK-MB 1.8 NG/ML; CO2 (CARBON DIOXIDE) 28 MMOL/L (24-34); CPK 22 U/L (0-200); CREATININE 0.99 MG/DL (0.55-1.02); GFR AFRICAN AMERICAN 62 ML/MIN (>=60); GFR NON AFRICAN AMERICAN 53 ML/MIN (>=60); GLUCOSE, SERUM 93 MG/DL (60-99); POTASSIUM, SERUM 4.1 MMOL/L (3.5-5.3); SODIUM, SERUM 140 MMOL/L (135-148); TROPONIN I <0.02 NG/ML (<0.05)
[2017-01-22 16:18] LABS: CK-MB 1.1 NG/ML; CPK 31 U/L (0-200); TROPONIN I <0.02 NG/ML (<0.05)
[2017-01-23] MEDS ORDERED: MACROBID PO (14:29)
[2017-01-23] MEDS ORDERED: LOP25 PO (14:38)
[2017-01-23] MEDS ORDERED: APRES25 PO (14:45)
[2017-05-15] MEDS ORDERED: BACTRIM1 TAB PO (09:47)
[2017-05-15] MEDS ORDERED: ALBUTEROL5 INH (09:50)
[2017-05-15] MEDS ORDERED: ELIQUIS 5 MG TAB5 MG PO (09:51)
[2017-05-15] MEDS ORDERED: C5 PO (09:53)
== END 2017-01-23 15:37 | disposition home health service (06) | DRG 683 ==
LOC: ER 12:41 → 4SO 13:19
PROVIDERS: Emergency Medicine; Internal Medicine; Nurse Practitioner Family
DX: N17.9 Acute kidney failure, unspecified (principal); N39.0 Urinary tract infection, site not specified; E87.1 Hypo-osmolality and hyponatremia; I48.0 Paroxysmal atrial fibrillation; E86.1 Hypovolemia; M06.9 Rheumatoid arthritis, unspecified; E78.2 Mixed hyperlipidemia; J43.9 Emphysema, unspecified; R53.1 Weakness; B96.20 Unspecified Escherichia coli [E. coli] as the cause of diseases classified elsewhere; R19.7 Diarrhea, unspecified; Z16.23 Resistance to quinolones and fluoroquinolones; Z95.0 Presence of cardiac pacemaker; Z79.01 Long term (current) use of anticoagulants; Z88.8 Allergy status to other drugs, medicaments and biological substances; Z86.73 Personal history of transient ischemic attack (TIA), and cerebral infarction without residual deficits; Z79.52 Long term (current) use of systemic steroids; Z91.81 History of falling; Z85.828 Personal history of other malignant neoplasm of skin
CPT/HCPCS: 36415; 74176; 80048; 80053; 81001; 81479; 81479-59; 82397; 82397-59; 82550; 82553; 82962; 83520; 83520-59; 83605; 83690; 83735; 84145; 84443; 84484; 85025; 85652; 86140; 86141; 87040; 87077; 87086; 87186; 87328; 87329; 87493; 87493-59; 88346; 88350; 89055; 93005; 94640; 96374; 96375; 97161-GP; 97530-GP; 99285; A9270-GY; G8978-CH-GP; G8979-CH-GP; J0690; J2405; J2920

== ENCOUNTER 2017-01-24 17:45 | Emergency (ER) | payer MEDICARE ==
[2017-01-24 16:36] LABS: ASCORBIC ACID (UR NOT ORDER) NEG (NEG); BILIRUBIN, URINE NEGATIVE (NEG); ER URINALYSIS TAT 0 Hrs 11 Mins; KETONE, URINE NEGATIVE (NEG); LEUKOCYTE ESTERASE(NOT OR NEG (NEG); NITRITE (URINE) NEG (NEG); WBC (NOT ORDERED) (RFLEX) 1 (0-5)
[2017-01-24 16:38] LABS: BASOPHILS 0.2 %; BASOPHILS ABSOLUTE 0.01 10/3/uL (0.0-0.16); EOSINOPHILS 1.2 %; EOSINOPHILS ABSOLUTE 0.08 10/3/uL (0.0-0.53); HEMATOCRIT 39.4 % (36.0-48.0); HEMOGLOBIN 13.2 g/dL (12.0-16.0); IMMATURE GRANULOCYTES 0.6 %; IMMATURE GRANULOCYTES ABSOLUTE 0.04 10/3/uL (0.0-0.11); LYMPHOCYTES 18.5 %; LYMPHOCYTES ABSOLUTE 1.21 10/3/uL (0.67-4.30); MEAN CORPUS HGB CONC 33.5 g/dL (32.0-36.0); MEAN CORPUSCULAR VOLUME 86.6 fL (80-100); MEAN PLATELET VOLUME 10.4 fL (9.2-13.0); MONOCYTES 9.5 %; MONOCYTES ABSOLUTE 0.62 10/3/uL (0.21-1.20); NEUTROPHILS ABSOLUTE 4.59 10/3/uL (2.02-8.40); PLATELET COUNT 183 10/3/uL (150-400); RBC DISTRIBUTION WIDTH 14.7 % (12.0-16.0); RED CELL COUNT 4.55 10/6/uL (4.0-5.6); WHITE BLOOD CELLS 6.6 10/3/uL (4.5-10.5)
[2017-01-24 16:40] LABS: ER CBC TAT 0 Hrs 13 MinsNP; MANUAL DIFF NO %
[2017-01-24 16:50] LABS: ALBUMIN 3.5 G/DL (3.5-5.0); ALKALINE PHOSPHATASE 54 U/L (45-117); BUN (BLOOD UREA NITROGEN) 25 MG/DL (6-23); CALCIUM, SERUM 8.9 MG/DL (8.5-10.4); CHEST PAIN PROFILE TAT 0 Hrs 25 Mins; CHLORIDE, SERUM 105 MMOL/L (96-112); CO2 (CARBON DIOXIDE) 27 MMOL/L (24-34); CREATININE 0.91 MG/DL (0.55-1.02); DIRECT BILIRUBIN < 0.1 MG/DL (0.0-0.4); GFR AFRICAN AMERICAN 68 ML/MIN (>=60); GFR NON AFRICAN AMERICAN 59 ML/MIN (>=60); GLUCOSE, SERUM 108 MG/DL (60-99); INDIRECT BILIRUBIN(NOT ORDER) 0.1 MG/DL (0.1-0.9); POTASSIUM, SERUM 4.1 MMOL/L (3.5-5.3); SGOT(AST) 20 U/L (5-40); SGPT(ALT) 15 U/L (5-65); SODIUM, SERUM 138 MMOL/L (135-148); TOTAL BILIRUBIN 0.2 MG/DL (0-1.2); TOTAL PROTEIN 6.4 G/DL (6.0-8.5); TROPONIN I <0.02 NG/ML (<0.05)
[2017-01-24 16:50] LABS: INTERNATIONAL NORMAL RATI 1.2 UNITS (-); PROTIME (NOT ORD) 14.6 SEC (12.0-14.5)
[2017-01-24 17:16] LABS: PROCALCITONIN < 0.05 ng/mL (<0.5)
[~2017-01-24 17:45] MED LIST changes: +LOP25 PO
[2017-05-15] MEDS ORDERED: BACTRIM1 TAB PO (09:47)
[2017-05-15] MEDS ORDERED: ALBUTEROL5 INH (09:50)
[2017-05-15] MEDS ORDERED: ELIQUIS 5 MG TAB5 MG PO (09:51)
[2017-05-15] MEDS ORDERED: C5 PO (09:53)
== END 2017-01-24 18:17 | disposition home or self-care (01) ==
LOC: ER 17:45
PROVIDERS: Emergency Medicine
DX: R53.1 Weakness (principal); I95.9 Hypotension, unspecified; M06.9 Rheumatoid arthritis, unspecified; I48.91 Unspecified atrial fibrillation; Z95.0 Presence of cardiac pacemaker; Z88.8 Allergy status to other drugs, medicaments and biological substances; Z79.52 Long term (current) use of systemic steroids; Z79.899 Other long term (current) drug therapy
CPT/HCPCS: 71010; 80048; 80076; 81001; 83605; 83690; 83735; 84145; 84484; 85025; 85610; 85730; 87040; 93005; 96374; 99285

== ENCOUNTER 2017-05-18 06:34 | Day surgery (SDC) | payer MEDICARE ==
[~2017-05-18] VITALS: Ht 154.9 cm; Wt 76.2 kg
--- NOTE | ~2017-05-18 | EGD ---
EGD REPORT [facility] [address] [address] NAME: SARAH EARL : 33 STATUS : REG [facility] PAT#: [id number] AGE: 81 ADM/REG DATE : 05/18/17 MR#: [id number] REPORT SERV DATE: 05/18/17 DICTATED BY: SHE NIX DATE: 05/18/17 REPORT STATUS : Draft TRANSCRIBED BY: [facility] DATE: 05/18/17 Endoscopy Center Patient Name: Sarah Earl Date of : 1935 Attending MD: SHE NIX MD Procedure Date No Time: 05/18/2017 Procedure: Upper GI endoscopy Indications: Abdominal pain in the left upper quadrant, Dysphagia, Odynophagia Referring MD: ROSENDO MARTINEZ MD, SEVEN MANZO, JEANNETTE COLINDRES MD, Sanchez Menjivar, KARMA SHELDON, NELLIE RAMSEY, CEDRICK RICHTER, DORIS ALVARADO Medicines: Propofol per Anesthesia Complications: No immediate complications. Estimated blood loss: None. Procedure: Pre-Anesthesia Assessment: - After reviewing the risks and benefits, the patient was deemed in satisfactory condition to undergo the procedure. - Prior to the procedure, a History and Physical was performed, and patient medications and allergies were reviewed. The patient's tolerance of previous anesthesia was also reviewed. The risks and benefits of the procedure and the sedation options and risks were discussed with the patient. All questions were answered, and informed consent was obtained. Prior Anticoagulants: The patient has taken Eliquis, last dose was 2 days prior to procedure. ASA Grade Assessment: III - A patient with severe systemic disease. After reviewing the risks and benefits, the patient was deemed in satisfactory condition to undergo the procedure. After obtaining informed consent, the endoscope was passed under direct vision. Throughout the procedure, the patient's blood pressure, pulse, and oxygen saturations were monitored continuously. The GIF [id number] was introduced through the mouth, and advanced to the jejunum. The upper GI endoscopy was accomplished without difficulty. The patient tolerated the procedure well. Findings: The examined esophagus was normal. A guidewire was placed and the scope was withdrawn. Dilation was performed with a Savary dilator with mild resistance at 48 Fr. Estimated blood loss: none. Repeat endoscopic examination after dilation revealed no injury. Diffuse moderate inflammation characterized by congestion (edema), erythema and granularity was found in the gastric antrum. Biopsies were EGD REPORT [address] [address] NAME: SARAH EARL : 34 STATUS : REG [facility]#: [id number] AGE: 81 ADM/REG DATE : 05/18/17 MR#: [id number] REPORT SERV DATE: 05/18/17 DICTATED BY: SHE NIX DATE: 05/18/17 REPORT STATUS : Draft TRANSCRIBED BY: [email or web address] DATE: 05/18/17 taken with a cold forceps for histology. Estimated blood loss: none. The gastroesophageal junction (on retroflexion) was normal. The examined duodenum was normal. Biopsies were taken with a cold forceps for histology. Estimated blood loss: none. Impression: - Normal esophagus. Dilated. - Chronic bile gastritis. Biopsied. - Normal gastroesophageal junction. - Normal examined duodenum. Biopsied. - Non-erosive esophageal reflux (NERD) disease present. - Chronic mesenteric vascular disease. Recommendation: - Discharge patient to home (ambulatory). - Mechanical soft diet today. Advance diet Thursday as tolerated. - Continue present medications. - Continue Prilosec (omeprazole) 40 mg twice daily before breakfast and supper. - Increase Carafate (sucralfate) to 1 gram 3-4 times DAILY. - Begin Coumadin (warfarin) at prior dose tomorrow. - Await pathology results. - Return to GI clinic PRN. - Patient has a contact number available for emergencies. The signs and symptoms of potential delayed complications were discussed with the patient. Return to normal activities tomorrow. Written discharge instructions were provided to the patient. Procedure Code(s): --- Professional --- 68828, Esophagogastroduodenoscopy, flexible, transoral; with insertion of guide wire followed by passage of dilator(s) through esophagus over guide wire 08236, Esophagogastroduodenoscopy, flexible, transoral; with biopsy, single or multiple Diagnosis Code(s): --- Professional --- K29.50, Unspecified chronic gastritis without bleeding K29.60, Other gastritis without bleeding K21.9, Gastro-esophageal reflux disease without esophagitis R10.12, Left upper quadrant pain R13.10, Dysphagia, unspecified CPT copyright 2013 [employer]. All rights reserved. EGD REPORT [address] [place]. [address] NAME: SARAH EARL : 33 STATUS : REG [facility] PAT#: [id number] AGE: 81 ADM/REG DATE : 05/18/17 MR#: [id number] REPORT SERV DATE: 05/18/17 DICTATED BY: SHE NIX DATE: 05/18/17 REPORT STATUS : Draft TRANSCRIBED BY: [email or web address] DATE: 05/18/17 The codes documented in this report are preliminary and upon elevator constructor supervisor review may be revised to meet current compliance requirements. SHE NIX MD 05/18/2017 8:22 AM This report has been signed electronically. Number of Addenda: 0 Note Initiated On: 05/18/2017 7:52 AM Scope Withdrawal Time 0 hours 0 minutes 0 seconds [address] [place] [address]
[~2017-05-18 06:34] MED LIST changes: +ALBUTEROL5 INH; +BACTRIM1 TAB PO; +C5 PO; +ELIQUIS 5 MG TAB5 MG PO
== END 2017-05-18 23:59 | disposition home or self-care (01) ==
LOC: DMU 06:34
PROVIDERS: Internal Medicine Gastroenterology
PROC: 0D758ZZ Dilation of Esophagus, Via Natural or Artificial Opening Endoscopic (ICD-10-PCS; 2017-05-18)
PROC: 0DB98ZX Excision of Duodenum, Via Natural or Artificial Opening Endoscopic, Diagnostic (ICD-10-PCS; principal; 2017-05-18 08:00)
PROC: 0DB78ZX Excision of Stomach, Pylorus, Via Natural or Artificial Opening Endoscopic, Diagnostic (ICD-10-PCS; 2017-05-18 08:00)
DX: K21.9 Gastro-esophageal reflux disease without esophagitis (principal); K55.1 Chronic vascular disorders of intestine; J44.9 Chronic obstructive pulmonary disease, unspecified; H40.9 Unspecified glaucoma; M06.9 Rheumatoid arthritis, unspecified; Z86.73 Personal history of transient ischemic attack (TIA), and cerebral infarction without residual deficits; Z79.52 Long term (current) use of systemic steroids; Z95.0 Presence of cardiac pacemaker; Z90.710 Acquired absence of both cervix and uterus; Z98.41 Cataract extraction status, right eye; Z98.42 Cataract extraction status, left eye; Z90.49 Acquired absence of other specified parts of digestive tract; Z98.51 Tubal ligation status; Z98.890 Other specified postprocedural states
CPT/HCPCS: 88305